=== PATIENT | female | born 1945 | race Caucasian/White ===

== ENCOUNTER 2020-01-29 21:21 | Emergency (ER) | payer OTHER, BC ==
[2020-01-29 21:53] VITALS: BMI 31.9
--- NOTE | 2020-01-29 22:08 | PDOC ---
History of Present Illness - General Chief Complaint: Nausea/Vomiting Stated Complaint: VOMITING Time Seen by Provider: 01/29/20 21:48 - History of Present Illness Initial Comments: 01/29/20 22:08 74 yo F PMH HTN, HLD, recently diagnosed Parkinson's disease via Dr. Aguilar, chronic urinary incontinence, sent from [facility] with vomiting and diarrhea. Patient states that she has had constant issues with d iarrhea due to her Anti-Parkinson medications for the past several months. Had two episodes of loose stools today and two episodes of nbnb vomiting. Patient states that she did not want to come, but the staff overrode her. States that she is now asymptomatic. Endorses cough and congestive symptoms for the past week. Denies CP, SOB, abd pain, fevers/chills, TIDWELL. Past History - Past Medical History Allergies/Adverse Reactions: Allergies Allergy/AdvReac Type Severity Reaction Status Date / Time No Known Allergies Allergy Verified 01/29/20 21:53 - Psycho Social/Smoking Cessation Hx Smoking History: Never smoked Information on smoking cessation initiated: No Hx Alcohol Use: No Drug/Substance Use Hx: No Review of Systems - Review of Systems Comments:: 01/29/20 22:17 GENERAL/CONSTITUTIONAL: denies fever, chills, diaphoresis, generalized weakness, malaise, loss of appetite, weight change HEAD, EYES, EARS, NOSE AND THROAT: endorses nasal congestion. Denies throat pain, throat swelling, difficulty swallowing, mouth swelling, ear pain, eye pain, visual changes NEUROLOGIC: denies headache, focal weakness or paresthesias, dizziness, unsteady gait, seizure, mental status changes CARDIOVASCULAR: denies chest pain, syncope, palpitations, irregular heart rate, lightheadedness, peripheral edema RESPIRATORY: denies cough, shortness of breath, dyspnea with exertion, orthopnea, wheezing, stridor, hemoptysis GASTROINTESTINAL: endorses two bouts of diarrhea and nausea with two episodes of vomiting; nausea now resolved. Denies abdominal pain, abdominal distension, nausea, vomiting, diarrhea, constipation, melena, hematochezia GENITOURINARY: chronic urinary incontinence. Denies dysuria, frequency, hesitancy, hematuria, flank pain, genital pain MUSCULOSKELETAL: denies myalgia, arthralgia, joint swelling, back pain, neck pain SKIN: denies rash, itching, pallor HEMATOLOGIC/IMMUNOLOGIC: denies easy bleeding, easy bruising, lymphadenopathy, frequent infections ENDOCRINE: denies unexplained weight gain, unexplained weight loss, heat intolerance, cold intolerance PSYCHIATRIC: denies anxiety, depression, suicidal or homicidal ideation, hallucinations *Physical Exam - Vital Signs Last Vital Signs Temp Pulse Resp BP Pulse Ox 98.1 F 61 18 110/62 97 01/29/20 21:21 01/29/20 21:21 01/29/20 21:21 01/29/20 21:21 01/29/20 21:21 - Physical Exam 01/29/20 22:16 Gen: well-developed, well-nourished, NAD Neuro: AAOX4, CN II-XII intact, FTN intact, EOMI, PERRLA, 5/5 strength, SILT HEENT: atraumatic, normocephalic, dry mucous membranes Neck: trachea midline, supple CV: regular rate, regular rhythm, no murmurs, rubs, or gallops Pulm: CTA b/l, no wheezing Abd: soft, non-distended, non-tender MSK: full ROM, intact pulses Extr: no edema, no deformities Skin: warm, dry ED Treatment Course - LABORATORY CBC & Chemistry Diagram: 01/29/20 22:30 01/29/20 22:30 Medical Decision Making - Medical Decision Making 01/29/20 22:18 Concern for possible gastroenteritis vs ACS. - CBC, CMP - EKG, trop - CXR 01/29/20 23:17 CXR with poor inspiratory effort, poor film. No acute abnormality. 01/29/20 23:38 EKG normal sinus at 75 bpm, poor baseline quality, VA 158, QRS 82, QTc 466, no ischemic changes 01/30/20 00:33 Repeat CXR with improved inspiratory effort, no acute pathology. Will dc. Discharge - Discharge Information Problems reviewed: Yes Clinical Impression/Diagnosis: Nausea vomiting and diarrhea Condition: Improved Disposition: HOME - Admission No - Follow up/Referral Referrals: Марина Erazo MD [Primary Care Provider] - - Patient Discharge Instructions Patient Printed Discharge Instructions: DI for Nausea -- Adult Additional Instructions: You were seen with nausea, vomiting, and diarrhea. Your EKG, imaging, and labs did not show any acute findings. This is likely to have been a viral bug. Please drink plenty of fluids. Follow up with your primary care doctor within one week. Return to the ED if you develop worsening symptoms. - Post Discharge Activity
--- NOTE | 2020-01-29 22:13 | PDOC ---
Documentation entered by Ellis Doe SCRIBE, acting as scribe for Teri Wood MD. Teri Wood MD: This documentation has been prepared by the Nader bennett Angel, SCRIBE, under my direction and personally reviewed by me in its entirety. I confirm that the documentation accurately reflects all work, treatment, procedures, and medical decision making performed by me. Attending Attestation - Resident Resident Name: Charley Salvador - ED Attending Attestation I have performed the following: I have examined & evaluated the patient, The case was reviewed & discussed with the resident, I agree w/resident's findings & plan, Exceptions are as noted - HPI HPI: 01/29/20 22:11 74-year-old female brought by ambulance from [facility] for nausea vomiting and loose stools. HPI past medical history hypertension hyperlipidemia Parkinson's taking Sinemet and carbidopa and has found that she has diarrhea with her new medications. 01/30/20 00:17 - Physicial Exam PE: 01/30/20 00:17 74-year-old female who is well-nourished and well developed stating that she has no abdominal pain at this time Head is normocephalic atraumatic Neck is supple Lungs are clear to auscultation bilaterally CVS is regular rate and rhythm S1-S2 Abdomen there is no focal abdominal pain, no rebound, no guarding Skin is warm and dry Extremities some pedal edema Neuro alert and oriented x3, motor strength 5 out of 5 bilaterally - Medical Decision Making 01/29/20 22:12 Upon arrival the patient says she has absolutely no abdominal pain and did not want to come to the emergency room initially 01/29/20 22:12 She has had issues with loose stools and recently diagnosed with Parkinson's disease by Dr. Aguilar 01/30/20 02:00 labs unremarkable d/c back to [facility]
[2020-01-29 22:41] LABS: BASO % 0.4 % (0-2.0); EOS % 1.6 % (0-4.5); HEMATOCRIT 39.2 % (32.4-45.2); HEMOGLOBIN 12.9 GM/dL (10.7-15.3); LYMPH % 4.6 % (8-40); MCH 30.3 pg (25.7-33.7); MEAN CELL VOLUME 91.7 fl (80-96); MEAN PLT VOLUME 8.8 fl (7.5-11.1); MONO % 5.7 % (3.8-10.2); NEUT % 87.7 % (42.8-82.8); PLATELET COUNT 208 K/MM3 (134-434); RBC 4.28 M/mm3 (3.60-5.2); RDW 14.1 % (11.6-15.6); WHITE BLOOD COUNT 8.8 K/mm3 (4.0-10.0)
[2020-01-29] MEDS ORDERED: METHOCARBAMOL 500 MG TABLET ONE (22:47)
[2020-01-29 23:10] LABS: ALBUMIN 3.3 g/dl (3.4-5.0); BILIRUBIN,TOTAL 0.4 mg/dL (0.2-1); BLOOD UREA NITROGEN 36.2 mg/dL (7-18); CALCIUM 8.2 mg/dL (8.5-10.1); CREATININE 0.8 mg/dL (0.55-1.3); POTASSIUM 4.2 mmol/L (3.5-5.1); TOT PROT 6.4 g/dl (6.4-8.2)
[2020-01-30 03:14] VITALS: BP 126/70; PULSE 80; TEMP 98.3
--- NOTE | 2020-01-30 10:33 | EKG ---
Test Reason : Blood Pressure : / mmHG Vent. Rate : 075 BPM Atrial Rate : 075 BPM P-R Int : 158 ms QRS Dur : 082 ms QT Int : 418 ms P-R-T Axes : 022 -24 048 degrees QTc Int : 466 ms NORMAL SINUS RHYTHM NONSPECIFIC ST AND T WAVE ABNORMALITY ABNORMAL ECG NO PREVIOUS ECGS AVAILABLE Confirmed by Riley Leiva MD ([id number]) on 01/30/2020 10:33:08 AM Referred By: Confirmed By:Riley Leiva MD
== END 2020-01-30 03:24 ==
LOC: JER 21:21
DX: R11.2 Nausea with vomiting, unspecified (principal); R19.7 Diarrhea, unspecified; G20 Parkinson's disease; I10 Essential (primary) hypertension; E78.5 Hyperlipidemia, unspecified; N39.498 Other specified urinary incontinence
CPT/HCPCS: 36415; 71045-TC-FY; 71046-TC-FY; 80053; 84484; 85025; 93005; 93010; 99284-25